=== PATIENT | female | born 1950 | race Caucasian/White ===

== ENCOUNTER 2017-01-03 12:02 | Inpatient (IN) | payer MEDICARE, MEDICAID ==
[~2017-01-03] VITALS: Ht 160 cm; Wt 73.0 kg
[2017-01-03 13:23] LABS: BASOPHILS % (AUTO) 0.6 % (0.0-2.0); EOSINOPHILS % (AUTO) 0.5 % (1.0-6.0); HEMATOCRIT 36.6 % (36-46); HEMOGLOBIN 12.2 g/dL (12.0-16.0); LYMPHOCYTES # (AUTO) 0.6 K/uL (1.0-4.8); MEAN CORPUSCULAR HGB CONC 33.4 G/dL (31.0-37.0); MEAN CORPUSCULAR VOLUME 90 fL (80-100); MONOCYTES # (AUTO) 0.5 K/uL (0.1-1.0); MONOCYTES % (AUTO) 4.8 % (2.0-9.0); NEUTROPHILS # (AUTO) 9.3 K/uL (1.8-7.7); NEUTROPHILS % (AUTO) 88.1 % (40.0-70.0); PLATELET COUNT (AUTO) 281 K/uL (150-450); RED BLOOD CELL COUNT(AUTO) 4.07 MIL/uL (4.00-5.20); RED CELL DISTRIBUTION WIDTH 15.9 % (11.5-14.5); WHITE BLOOD COUNT (AUTO) 10.6 K/uL (4.5-11.0)
[2017-01-03 13:24] LABS: RBC MORPHOLOGY COMMENT NORMAL RBC MORPH
[2017-01-03 13:36] LABS: ANION GAP 13 mmol/L (8-16); CALCIUM, TOTAL 9.8 mg/dL (8.8-10.5); CARBON DIOXIDE 23 mmol/L (22-29); CHLORIDE 105 mmol/L (98-107); CREATININE 1.04 mg/dL (0.60-1.30); GLOMERULAR FILTR. RATE CALC 53 mL/min (>60); POTASSIUM 3.7 mmol/L (3.5-5.1); SODIUM SERUM 141 mmol/L (136-145); UREA NITROGEN, BLOOD 9 mg/dL (7-18)
[2017-01-03 13:42] LABS: ALANINE AMINOTRANSFERASE 12 U/L (12-78); ALBUMIN 3.5 g/dL (3.4-5.0); ASPARTATE AMINOTRANSFERASE 16 U/L (15-37); BILIRUBIN,TOTAL 0.5 mg/dL (0.1-1.0); TOTAL PROTEIN, SERUM 6.9 g/dL (6.4-8.2)
[2017-01-03] MEDS ORDERED: LORazepam 2 MG TABLET PO ONE (16:00)
[2017-01-03] MEDS ORDERED: HALOPERIDOL 5 MG TABLET PO PRN (16:15)
[2017-01-03] MEDS ORDERED: ZOLPIDEM TARTRATE 10 MG TABLET PO PRN (16:15)
[2017-01-03] MEDS ORDERED: LORazepam 2 MG TABLET PO PRN (16:15)
[2017-01-03] MEDS ORDERED: LITH300C3 PO (16:38)
[2017-01-03 17:05] LABS: LITHIUM < 0.20 mmol/L (0.60-1.20)
[2017-01-03 20:01] VITALS: BP 142/80
[2017-01-03 20:07] VITALS: BP 142/80
[2017-01-04 06:56] LABS: LITHIUM < 0.20 mmol/L (0.60-1.20)
[2017-01-04 06:58] LABS: THYROID STIMULATING HORMONE 1.17 uIU/mL (0.36-3.74)
[2017-01-04 06:59] LABS: VALPROIC ACID < 3 mcg/mL (50-100)
[2017-01-04 09:28] VITALS: BP 151/85
[2017-01-04] MEDS ORDERED: MAGNESIUM HYDROXIDE SUSPENSION 30 ML UDCUP PO PRN (10:00)
[2017-01-04] MEDS ORDERED: IBUPROFEN 600 MG TABLET PO PRN (10:00)
[2017-01-04] MEDS ORDERED: ALBUTEROL SULFATE HFA 90 MCG/PUFF 8 GM INHALER IH PRN (10:00)
[2017-01-04] MEDS ORDERED: ACETAMINOPHEN 325 MG TABLET PO PRN (10:00)
[2017-01-04] MEDS ORDERED: MAG HYDROX/AL HYDROX/SIMETH ES 30 ML SUSPENSION UDCUP PO PRN (10:00)
[2017-01-04] MEDS ORDERED: PETROLATUM,WHITE 71 GM JELLY TP PRN (10:00)
[2017-01-04] MEDS ORDERED: CloNIDine HCL 0.1 MG TABLET PO PRN (10:00)
[2017-01-04] MEDS: AmLODIPine BESYLATE 5 MG TABLET PO SCH (10:00)
[2017-01-04] MEDS ORDERED: BENZOCAINE/MENTHOL LOZENGE [8 LOZENGES/PACKET] MM PRN (10:00)
[2017-01-04] MEDS ORDERED: LOPERAMIDE HCL 2 MG CAPSULE PO PRN (10:00)
[2017-01-04] MEDS ORDERED: ONDANSETRON HCL 4 MG TABLET PO PRN (10:00)
[2017-01-04] MEDS ORDERED: BACITRACIN 28.4 GM OINTMENT TP PRN (10:00)
[2017-01-04 16:32] VITALS: BP 157/77
[2017-01-04] MEDS: DIVALPROEX SODIUM 500 MG DR TABLET PO SCH (17:30)
[2017-01-04] MEDS: OLANZapine 7.5 MG TABLET PO SCH (20:31)
[2017-01-05] MEDS: AmLODIPine BESYLATE 5 MG TABLET PO SCH (08:24)
[2017-01-05 08:25] VITALS: BP 167/92
[2017-01-05] MEDS: DIVALPROEX SODIUM 500 MG DR TABLET PO SCH ×2 (08:27→16:10)
[2017-01-05 16:47] VITALS: BP 140/82
[2017-01-05] MEDS: OLANZapine 7.5 MG TABLET PO SCH (20:26)
[2017-01-06 01:56] VITALS: BP 144/89
[2017-01-06 07:49] LABS: APPEARANCE,URINE CLEAR (CLEAR); GLUCOSE, URINE (UA) NEGATIVE (NEGATIVE); KETONES,URINE NEGATIVE (NEGATIVE); LEUKOCYTE ESTERASE ,URINE NEGATIVE (NEGATIVE); OCCULT BLOOD,URINE NEGATIVE (NEGATIVE); PH,URINE 6.5 (5.0-8.0); PROTEIN,URINE NEGATIVE (NEGATIVE)
[2017-01-06 07:51] LABS: RBC,URINE None Seen /HPF (0-2); WBC,URINE None Seen /HPF (0-5)
[2017-01-06 08:05] VITALS: BP 150/70
[2017-01-06] MEDS: DIVALPROEX SODIUM 500 MG DR TABLET PO SCH ×2 (09:28→17:15)
[2017-01-06] MEDS: AmLODIPine BESYLATE 5 MG TABLET PO SCH (09:29)
[2017-01-06 16:38] VITALS: BP 135/83
[2017-01-06] MEDS: OLANZapine 7.5 MG TABLET PO SCH (19:57)
[2017-01-07 08:05] VITALS: BP 158/72
[2017-01-07] MEDS: AmLODIPine BESYLATE 5 MG TABLET PO SCH (08:27)
[2017-01-07] MEDS: DIVALPROEX SODIUM 500 MG DR TABLET PO SCH ×2 (08:27→17:17)
[2017-01-07 16:28] VITALS: BP 135/65
[2017-01-07] MEDS: OLANZapine 7.5 MG TABLET PO SCH (20:15)
[2017-01-08 08:48] VITALS: BP 156/88
[2017-01-08] MEDS: DIVALPROEX SODIUM 500 MG DR TABLET PO SCH ×2 (09:08→15:52)
[2017-01-08] MEDS: AmLODIPine BESYLATE 5 MG TABLET PO SCH (09:08)
[2017-01-08 16:25] VITALS: BP 149/89
[2017-01-08] MEDS: OLANZapine 7.5 MG TABLET PO SCH (20:02)
[2017-01-09 08:52] VITALS: BP 166/88
[2017-01-09] MEDS: AmLODIPine BESYLATE 5 MG TABLET PO SCH (09:12)
[2017-01-09] MEDS: DIVALPROEX SODIUM 500 MG DR TABLET PO SCH ×2 (09:13→16:01)
[2017-01-09 16:34] VITALS: BP 149/84
[2017-01-09] MEDS: OLANZapine 7.5 MG TABLET PO SCH (20:29)
[2017-01-10] MEDS: AmLODIPine BESYLATE 5 MG TABLET PO SCH (08:31)
[2017-01-10] MEDS: DIVALPROEX SODIUM 500 MG DR TABLET PO SCH ×2 (08:31→16:25)
[2017-01-10 08:48] VITALS: BP 173/91
[2017-01-10 09:42] VITALS: BP 125/65
[2017-01-10 16:34] VITALS: BP 137/79
[2017-01-10] MEDS: OLANZapine 7.5 MG TABLET PO SCH (21:43)
[2017-01-11 08:24] VITALS: BP 167/80
[2017-01-11] MEDS: AmLODIPine BESYLATE 5 MG TABLET PO SCH (09:53)
[2017-01-11] MEDS: DIVALPROEX SODIUM 500 MG DR TABLET PO SCH ×2 (09:53→16:27)
[2017-01-11 10:11] VITALS: BP 153/79
[2017-01-11 17:00] VITALS: BP 155/82
[2017-01-11] MEDS: OLANZapine 7.5 MG TABLET PO SCH (20:34)
[2017-01-12 08:30] VITALS: BP 147/78
[2017-01-12] MEDS: AmLODIPine BESYLATE 5 MG TABLET PO SCH (08:43)
[2017-01-12] MEDS: DIVALPROEX SODIUM 500 MG DR TABLET PO SCH ×2 (08:43→17:51)
[2017-01-12 18:40] VITALS: BP 144/86
[2017-01-12] MEDS: OLANZapine 7.5 MG TABLET PO SCH (20:58)
[2017-01-13] MEDS ORDERED: AMLO-511 PO (08:27)
[2017-01-13] MEDS ORDERED: DIVA500T35 PO (08:27)
[2017-01-13] MEDS ORDERED: OLAN7.5T2 PO (08:28)
[2017-01-13 08:37] VITALS: BP 163/91
[2017-01-13] MEDS: DIVALPROEX SODIUM 500 MG DR TABLET PO SCH ×2 (08:58→17:02)
[2017-01-13] MEDS: AmLODIPine BESYLATE 5 MG TABLET PO SCH (08:58)
[2017-01-13 19:58] VITALS: BP 128/82
[2017-01-13] MEDS: OLANZapine 7.5 MG TABLET PO SCH (20:46)
[2017-01-14 08:00] VITALS: BP 144/75
[2017-01-14] MEDS: AmLODIPine BESYLATE 5 MG TABLET PO SCH (08:34)
[2017-01-14] MEDS: DIVALPROEX SODIUM 500 MG DR TABLET PO SCH ×2 (08:34→17:22)
[2017-01-14 16:30] VITALS: BP 130/57
[2017-01-14] MEDS: OLANZapine 7.5 MG TABLET PO SCH (20:45)
[2017-01-15] VITALS (10 sets, daily range): BP systolic 135–164; BP diastolic 68–96
[2017-01-15] MEDS: AmLODIPine BESYLATE 5 MG TABLET PO SCH (09:12)
[2017-01-15] MEDS: DIVALPROEX SODIUM 500 MG DR TABLET PO SCH ×2 (09:12→16:27)
[2017-01-15] MEDS: OLANZapine 7.5 MG TABLET PO SCH (21:18)
[2017-01-16 05:07] VITALS: BP 160/83
[2017-01-16 08:02] VITALS: BP 180/94
[2017-01-16 09:15] VITALS: BP 154/86
[2017-01-16] MEDS: DIVALPROEX SODIUM 500 MG DR TABLET PO SCH ×2 (09:30→16:07)
[2017-01-16] MEDS: AmLODIPine BESYLATE 5 MG TABLET PO SCH (09:31)
[2017-01-16 17:00] VITALS: BP 160/78
[2017-01-16] MEDS: OLANZapine 7.5 MG TABLET PO SCH (20:08)
[2017-01-17 08:01] VITALS: BP 194/88
[2017-01-17] MEDS: DIVALPROEX SODIUM 500 MG DR TABLET PO SCH ×2 (08:29→16:51)
[2017-01-17] MEDS: AmLODIPine BESYLATE 5 MG TABLET PO SCH (08:29)
[2017-01-17] MEDS ORDERED: AmLODIPine BESYLATE 5 MG TABLET PO ONE (11:00)
[2017-01-17 13:57] VITALS: BP 158/89
[2017-01-17 16:47] VITALS: BP 137/71
[2017-01-17] MEDS: OLANZapine 7.5 MG TABLET PO SCH (20:31)
[2017-01-18 08:20] VITALS: BP 154/78
[2017-01-18] MEDS: AmLODIPine BESYLATE 10 MG TABLET PO SCH (08:52)
[2017-01-18] MEDS: DIVALPROEX SODIUM 500 MG DR TABLET PO SCH ×2 (08:52→16:07)
[2017-01-18 18:14] VITALS: BP 135/80
[2017-01-18] MEDS: OLANZapine 7.5 MG TABLET PO SCH (20:18)
[2017-01-19] MEDS: DIVALPROEX SODIUM 500 MG DR TABLET PO SCH ×2 (08:57→16:13)
[2017-01-19] MEDS: AmLODIPine BESYLATE 10 MG TABLET PO SCH (08:57)
[2017-01-19 09:01] VITALS: BP 163/98
[2017-01-19 16:40] VITALS: BP 134/73
[2017-01-19] MEDS: OLANZapine 7.5 MG TABLET PO SCH (20:08)
[2017-01-20] VITALS (10 sets, daily range): BP systolic 138–163; BP diastolic 70–90
[2017-01-20] MEDS: DIVALPROEX SODIUM 500 MG DR TABLET PO SCH ×2 (08:09→17:27)
[2017-01-20] MEDS: AmLODIPine BESYLATE 10 MG TABLET PO SCH (08:09)
[2017-01-20] MEDS: OLANZapine 7.5 MG TABLET PO SCH (20:05)
[2017-01-21] MEDS: DIVALPROEX SODIUM 500 MG DR TABLET PO SCH (08:12)
[2017-01-21] MEDS: AmLODIPine BESYLATE 10 MG TABLET PO SCH (08:12)
[2017-01-21 09:49] VITALS: BP 145/82
== END 2017-01-21 14:15 | disposition home or self-care (01) | DRG 885 ==
LOC: EEVIPCON 12:06 → EMS 12:06 → 3EX 16:37
PROVIDERS: ADMIT Psychiatry & Neurology Psychiatry; ATTEND Psychiatry & Neurology Psychiatry
DX: F20.0 Paranoid schizophrenia (principal); I10 Essential (primary) hypertension; F31.9 Bipolar disorder, unspecified; G47.00 Insomnia, unspecified; K21.9 Gastro-esophageal reflux disease without esophagitis; F09 Unspecified mental disorder due to known physiological condition; M54.5 Low back pain; K59.00 Constipation, unspecified; M19.90 Unspecified osteoarthritis, unspecified site; Z88.0 Allergy status to penicillin; Z79.899 Other long term (current) drug therapy; Z72.89 Other problems related to lifestyle; Z71.41 Alcohol abuse counseling and surveillance of alcoholic
CPT/HCPCS: 70450; 84436; 84439; 84443; 93005; 99285; G0480